=== PATIENT | male | born 1960 | race Caucasian/White ===

== ENCOUNTER 2021-03-06 08:48 | Emergency (ER) | payer BC ==
[2021-03-06] MEDS ORDERED: Cyclobenzaprine 10 MG TAB ONE (10:12)
[2021-03-06] MEDS ORDERED: Ondansetron ODT 4 MG TAB ONE (10:12)
[2021-03-06] MEDS ORDERED: HYDROmorphone 0.5 MG/0.5 ML SYRINGE ONE (10:13)
[2021-03-06] MEDS ORDERED: Ketorolac Tromethamine 30 MG/ML VIAL ONE (10:49)
[2021-03-06] MEDS ORDERED: Diazepam 10 MG/2 ML SYRINGE ONE ×2 (10:50→11:05)
[2021-03-06] MEDS ORDERED: Dexamethasone 10 MG/ML VIAL ONE (13:37)
== END 2021-03-06 13:45 | disposition home or self-care (01) ==
LOC: CSHERS 08:48
DX: M54.16 Radiculopathy, lumbar region (principal); I10 Essential (primary) hypertension; E78.5 Hyperlipidemia, unspecified
CPT/HCPCS: 72100; 74176; 96372; 96374; 96375; J1100; J1170; J1885; J3360; Q0162

== ENCOUNTER 2021-03-24 04:17 | Emergency (ER) | payer BC ==
[2021-03-24] MEDS ORDERED: Cyclobenzaprine 10 MG TAB ONE (05:08)
[2021-03-24] MEDS ORDERED: Ketorolac Tromethamine 30 MG/ML VIAL ONE (05:08)
[2021-03-24] MEDS ORDERED: Diazepam 5 MG TAB ONE (06:08)
== END 2021-03-24 07:08 | disposition home or self-care (01) ==
LOC: CSHERS 04:17
DX: M54.50 Low back pain, unspecified (principal); I10 Essential (primary) hypertension; E78.5 Hyperlipidemia, unspecified
CPT/HCPCS: 96372; 99283; J1885